=== PATIENT | female | born 1995 | race Hispanic/Latino ===

== ENCOUNTER 2018-03-31 14:25 | Emergency (ER) | payer OTHER ==
[2018-03-31 14:30] VITALS: BP 125/88; PULSE 88; RESP 16; TEMP 99.6; O2SAT 98
--- NOTE | 2018-03-31 15:14 | ED PDOC ---
HPI: Abdomen Time Seen by Provider: 03/31/18 14:40 Chief Complaint (Nursing): Abdominal Pain Chief Complaint (Provider): Abdominal Pain History Per: Patient History/Exam Limitations: no limitations Onset/Duration Of Symptoms: Days (x7) Current Symptoms Are (Timing): Still Present Additional Complaint(s): 23 year old female presents to the ED complaining of crampy lower abdominal pain consistent with menstrual cramps onset one week. Patient states her menstruation began one week early, despite being on control. As for her control though, she notes it's from [place] and she is concerned it has caused her to develop ovarian cysts. She denies dysuria and vomiting. Of note, she was given bentyl from her PMD without relief, but has not taken any other pain meds. PMD: Homero Cardoso Past Medical History Reviewed: Historical Data, Nursing Documentation, Vital Signs Vital Signs: Last Vital Signs Temp 99.6 F 03/31/18 14:27 Pulse 88 03/31/18 14:27 Resp 16 03/31/18 14:27 BP 125/88 03/31/18 14:27 Pulse Ox 98 03/31/18 16:58 - Medical History PMH: No Chronic Diseases Other PMH: cervical dysplasia, but resolved - Surgical History Surgical History: No Surg Hx - Family History Family History: States: Unknown Family Hx - Social History Current smoker - smoking cessation education provided: No Alcohol: Social Drugs: Denies - Home Medications Home Medications: Ambulatory Orders Medication Instructions Recorded Naproxen 375 mg PO Q8 PRN #21 tablet 03/31/18 - Allergies Allergies/Adverse Reactions: Allergies Allergy/AdvReac Type Severity Reaction Status Date / Time No Known Allergies Allergy Verified 03/31/18 14:27 Review of Systems ROS Statement: Except As Marked, All Systems Reviewed And Found Negative Gastrointestinal: Positive for: Abdominal Pain (lower, crampy). Negative for: Vomiting Genitourinary Female: Negative for: Dysuria Physical Exam - Reviewed Nursing Documentation Reviewed: Yes Vital Signs Reviewed: Yes - Physical Exam Appears: Positive for: No Acute Distress Head Exam: Positive for: ATRAUMATIC, NORMOCEPHALIC Skin: Positive for: Normal Color, Warm, Dry Eye Exam: Positive for: Normal appearance ENT: Positive for: Normal ENT Inspection Neck: Positive for: Normal, Painless ROM, Supple Cardiovascular/Chest: Positive for: Regular Rate, Rhythm. Negative for: Murmur Respiratory: Positive for: Normal Breath Sounds. Negative for: Accessory Muscle Use, Respiratory Distress Gastrointestinal/Abdominal: Positive for: Normal Exam, Soft. Negative for: Tenderness Back: Positive for: Normal Inspection. Negative for: L CVA Tenderness, R CVA Tenderness Extremity: Positive for: Normal ROM Neurologic/Psych: Positive for: Alert, Oriented (x3). Negative for: Motor/ Sensory Deficits - Laboratory Results Result Diagrams: 03/31/18 15:17 Urine POC: Negative Urine dip results: Positive for: Blood. Negative for: Nitrate - ECG O2 Sat by Pulse Oximetry: 98 (RA) Pulse Ox Interpretation: Normal - Progress ED Course And Treament: pelvic us: FINDINGS: Uterus/cervix: Unremarkable. Normal endometrial stripe thickness is 4.3 mm. No myometrial mass. Uterus measures 5.5 cm x 6.5 cm x 2.8 cm. The cervix measures 2.6 cm the cervical os is closed. Right ovary: Unremarkable. No mass. Normal blood flow. RIGHT ovary measures 3.1 cm x 1.5 cm 2 x 1 cm Left ovary: Simple cyst 9 mm x 5 mm x 8 mm No mass. Normal blood flow. LEFT ovary measures 3 cm x 1.7 cm x 2.4 cm Free fluid: No free fluid. IMPRESSION: 1. Negative uterus and endometrium. 2. Simple cyst LEFT ovary. 3. Negative RIGHT ovary Thank you for allowing us to participate in the care of your patient. Dictated and Authenticated by: Jose Luis Hernandez MD patient declines pain medication at this time. Medical Decision Making Medical Decision Making: Initial Impression: abdominal pain Time: 14:43 Initial Plan: --Urine --Urine dipstick --Transvaginal US Scribe Attestation: Documented by Destinee Champagne, acting as a scribe for Jen Crenshaw PA-C. Provider Scribe Attestation: All medical entries made by the Scribe were at my direction and personally dictated by me. I have reviewed the chart and agree that the record accurately reflects my personal performance of the history, physical exam, medical decision making, and the department course for this patient. I have also personally directed, reviewed, and agree with the discharge instructions and disposition. Disposition - Clinical Impression Clinical Impression: Abdominal cramps - Patient ED Disposition Is Patient to be Admitted: No - Disposition Disposition: Routine/Home Disposition Time: 16:56 Condition: FAIR Prescriptions: Naproxen 375 mg PO Q8 PRN #21 tablet PRN Reason: Pain, Moderate (4-7) Instructions: Ovarian Cysts, Menstrual Cramps (DC)
[2018-03-31 15:21] LABS: BASO % 0.3 % (0.0-2.0); EOS # 0.1 K/uL (0.0-0.7); EOS % 2.1 % (0.0-4.0); HEMOGLOBIN 12.8 g/dL (12.0-16.0); LYMPH # 2.3 K/uL (1.0-4.3); LYMPH % 42.1 % (20.0-40.0); MEAN CELL VOLUME 85.5 fl (81.0-99.0); MEAN CORPUSCULAR HEMOGLOBIN 28.6 pg (27.0-31.0); MEAN CORPUSCULAR HGB CONC 33.4 g/dL (33.0-37.0); MEAN PLATELET VOLUME 7.5 fl (7.2-11.7); MONO # 0.3 K/uL (0.0-0.8); MONO % 6.2 % (0.0-10.0); NEUT # 2.7 K/uL (1.8-7.0); NEUT % 49.3 % (50.0-75.0); NRBC % 0.1 % (0.0-0.0); RBC 4.48 Mil/uL (3.80-5.20); RED CELL DISTRIBUTION WIDTH 14.1 % (11.5-14.5); WHITE BLOOD COUNT 5.5 K/uL (4.8-10.8)
--- NOTE | 2018-04-01 08:01 | US ---
PROCEDURE: HISTORY: lower abdominal pain COMPARISON: TECHNIQUE: FINDINGS: The uterus and endometrium are normal in appearance. The right ovary is unremarkable. There is a simple follicle in the left ovary measuring 9 millimeters. There is no free fluid in the pelvis. IMPRESSION: Simple follicle in the left ovary measuring 8 millimeters.
== END 2018-03-31 17:13 | disposition home or self-care (01) ==
LOC: H.ER 14:25
DX: N83.202 Unspecified ovarian cyst, left side (principal)